=== PATIENT | male | born 1990 | race Two or more races ===

== ENCOUNTER 2020-11-06 16:04 | Emergency (ER) | payer SELFPAY ==
[~2020-11-06] VITALS: Ht 170.2 cm; Wt 61.2 kg
--- NOTE | 2020-11-06 16:12 | NUR ---
BIB SELF C/O L FOOT SWOLLEN STARTED SUNDAY. RATES PAIN 5/10. DENIES TINGLING/NUMBNESS IN THE EXTREMITY. WILL CONTINUE TO MONITOR THE PATIENT.
[2020-11-06] MEDS ORDERED: ACETAMINOPHEN ES 500 MG TABLET ONE (16:30)
[2020-11-06] MEDS ORDERED: IBUPROFEN 600 MG TABLET ONE (16:30)
[2020-11-06] MEDS: IBUPROFEN 600 MG TABLET PO ONE (16:35)
[2020-11-06] MEDS: ACETAMINOPHEN 325 MG TABLET PO ONE (16:35)
[2020-11-06] MEDS ORDERED: SULF1TAB48 PO (17:09)
[2020-11-06] MEDS ORDERED: IBUP-1955 PO (17:09)
[2020-11-06] MEDS ORDERED: CEPH500C2 PO (17:09)
[2020-11-06] MEDS ORDERED: SULFAMETH/TRIMETH 800/160 MG 1 UDTAB TABLET ONE (17:12)
[2020-11-06] MEDS ORDERED: CEPHALEXIN MONOHYDRATE 500 MG CAPSULE PO ONE (17:12)
[2020-11-06] MEDS: CEPHALEXIN MONOHYDRATE 500 MG CAPSULE PO ONE (17:14)
[2020-11-06] MEDS: SULFAMETH/TRIMETH 800/160 MG 1 UDTAB TABLET PO ONE (17:14)
[2020-11-06] MEDS: IV NS 0.9% 1,000 ML BAG IV ONE (17:29)
[2020-11-06 17:55] LABS: BASOPHILS % (AUTO) 0.2 % (0.0-2.0); EOSINOPHILS % (AUTO) 0.4 % (0.0-6.0); HEMATOCRIT 40 % (39-51); HEMOGLOBIN 13.4 g/dL (13.5-17.5); LYMPHOCYTES # (AUTO) 0.9 K/uL (0.8-4.8); LYMPHOCYTES % (AUTO) 9.1 % (20.0-44.0); MEAN CORPUSCULAR HGB CONC 34 g/dl (31.0-36.0); MEAN CORPUSCULAR VOLUME 83 fL (80-96); MONOCYTES # (AUTO) 0.7 K/uL (0.1-1.30); MONOCYTES % (AUTO) 6.9 % (2.0-12.0); NEUTROPHILS # (AUTO) 7.9 K/uL (1.8-8.9); NEUTROPHILS % (AUTO) 83.4 % (43.0-81.0); PLATELET COUNT (AUTO) 382 K/uL (150-450); RED BLOOD CELL COUNT(AUTO) 4.81 MIL/uL (4.5-6.0); WHITE BLOOD COUNT (AUTO) 9.5 K/uL (4.3-11.0)
[2020-11-06 18:02] LABS: CALCIUM, SERUM 8.6 mg/dL (8.5-10.1); POTASSIUM 3.6 mmol/L (3.5-5.1)
[2020-11-06 18:24] VITALS: BP 146/77
--- NOTE | 2020-11-06 18:24 | NUR ---
Patient discharged to home in stable condition. Written and verbal after care instructions given. Patient verbalizes understanding of instruction.
== END 2020-11-06 18:25 | disposition home or self-care (01) ==
LOC: ER 16:06
DX: L03.116 Cellulitis of left lower limb (principal)
CPT/HCPCS: 36415; 73630; 80048; 83605; 85025; 87040 ×2; 96360; 99284; J7030